=== PATIENT | male | born 1990 | race Caucasian/White ===

== ENCOUNTER 2021-01-10 15:05 | Emergency (ER) | payer OTHER, SELFPAY ==
--- NOTE | ~2021-01-10 | XR_ITS ---
EXAMINATION: XR chest 2V DATE: 01/10/2021 15:26 INDICATION: 4 days of cough and congestion. TECHNIQUE: PA and lateral views of the chest were obtained. COMPARISON: None FINDINGS: Small calcified nodule in the right lower lung zone. Suggestion of mild bronchial wall thickening the infrahilar region on the lateral projection. No other airspace opacities, pulmonary edema, pleural e ffusion or pneumothorax. The cardiomediastinal silhouette is normal. Mild thoracic spondylosis. Chron ic mild anterior wedging at T11 and T12. IMPRESSION: 1. Mild infrahilar bronchial wall thickening without focal airspace disease which could be due to bro nchitis or reactive airway disease/asthma. Reviewed, dictated and finalized at location A. IMPRESSION: 1. Mild infrahilar bronchial wall thickening without focal airspace disease whi ch could be due to bronchitis or reactive airway disease/asthma.
[2021-01-10 15:13] VITALS: BP 138/91; PULSE 117; RESP 16; TEMP 37.4; O2SAT 97
--- NOTE | 2021-01-10 15:40 | ED.URI ---
HPI - URI/Sore Throat General Chief Complaint: Upper Respiratory Infection Stated Complaint: Cough,Sinus Source: patient and RN notes reviewed Limitations: no limitations History of Present Illness HPI Narrative: The unvaccinated patient, a smoker and drinker, presents with 3-day history of cough. He developed 1/2-week history of myalgias with headache, nasal congestion and nonproductive cough; no earache, loss of taste/smell, CP, vomiting/diarrhea, S OB, wheezing. Symptoms are are mild, somewhat worse at night Related Data Home Medications Medication Instructions Recorded Confirmed clonazepam 01/10/21 Allergies Allergy/AdvReac Type Severity Reaction Status Date / Time No Known Allergies Allergy Verified 01/10/21 15:16 Review of Systems Review of Systems: Narrative: The patient has been informed that they may have pre-hypertension or Hypertension based on a BP reading in the department. I recommend that the patient call the primary care provider listed on their discharge instructions or a physician of their choice this week to arrange follow up for further evaluation of possible pre-hypertension or Hypertension General/Constitutional: No weight loss,fever Eyes: N0: Redness,discharge Ears/Nose/Throat: No: Epistaxis,ear discharge Respiratory: Denies: Hemoptysis Gastrointestinal: No Vomiting, Bleeding-rectal Skin: No Lumps, eruption Neurologic: No Focal Weakness,Sz Hematologic: Denies: Petechiae/Purpura Psychiatric: No: Suicida ideationl All Other Systems: Reviewed and Negative PMFSH Comments At time of signature, agree with nursing past medical, surgical, social and family history. There is no relevant family history pertinent to the presenting complaint Exam Narrative: Exam Narrative: General Appearance: Well appearing, Well nourished EYE: PERRLA, Conjunctiva clear Ears: Auditory canal normal, TM normal Nose: Rhinorrhea, Mucousal erythema Mouth/Throat: MM moist, Uvula midline, Pharyngeal erythema Neck: Supple, No adenopathy Respiratory: No respiratory distress, Breath sounds equal, scattered wheezes especially on the right Cardiovascular: RRR, No JVD Musculoskeletal: Non tender, Normal strength Skin: Warm, Dry Neurological: A&O x3, CN II-XII intact Psychiatric: Normal mood, Normal affect Course Course Emergency Course: Films visualized, interpreted by radiologist, agree, normal see report Vital Signs Vital signs: Vital Signs Temperature 99.3 F 01/10/21 15:13 Pulse Rate 117 H 01/10/21 15:13 Respiratory Rate 16 01/10/21 15:13 Blood Pressure 138/91 H 01/10/21 15:13 Pulse Oximetry 97 01/10/21 15:13 Temperature 99.3 F 01/10/21 15:13 Pulse Rate 117 H 01/10/21 15:13 Respiratory Rate 16 01/10/21 15:13 Blood Pressure 138/91 H 01/10/21 15:13 Pulse Oximetry 97 01/10/21 15:13 Discharge Plan Discharge Clinical Impression: Wheezing-associated respiratory infection (WARI) Patient Disposition: Home, Self-Care Condition: Stable Instructions: Acute Bronchitis (ED) Additional Instructions: Also try OTC supplements like vitamins D, C, B and zinc Prescriptions: New azithromycin 250 mg tablet See Rx Instructions .ROUTE .COMPLEX Qty: 6 RF: 0 prednisone 20 mg tablet 60 mg PO DAILY Qty: 9 RF: 0 albuterol sulfate [Ventolin HFA] 90 mcg/actuation HFA aerosol inhaler 2 puff INHALATION QID PRN (Reason: shortness of breath or wheezing) Qty: 1 RF: 1 No Action clonazepam 0.5 mg tablet RF: 0 Other Ambulatory Orders: SARS-CoV-2 RNA, Qual RT-PCR (Routine) Location: Determined by Patient Ordered By: Mando Shaver Follow-up/Referrals: Esdras,Margy Leos, PA [Primary Care Provider] - Stand Alone Forms: Work/School Release IP
== END 2021-01-10 15:51 | disposition home or self-care (01) ==
PROVIDERS: Emergency Provider Emergency Medicine; PCP Physician Assistant
DX: J98.01 Acute bronchospasm (principal); Z20.822 Contact with and (suspected) exposure to COVID-19
CPT/HCPCS: 71046; 87426; 99213; C9803; G0463